=== PATIENT | male | born 1975 | race African-American/Black ===

== ENCOUNTER 2018-04-17 09:28 | Emergency (ER) | payer MEDICAID ==
[~2018-04-17] VITALS: Ht 175.3 cm; Wt 75.0 kg
[2018-04-17] MEDS ORDERED: ALBU4TAB6 PO (09:35)
[2018-04-17] MEDS ORDERED: ONDANSETRON 4MG ODT PO ONE (10:15)
[2018-04-17] MEDS ORDERED: HYDROCODONE/ACETAMINOPHEN 5/325MG TABLET PO ONE (10:15)
[2018-04-17 10:19] VITALS: BP 114/80
== END 2018-04-17 11:10 | disposition home or self-care (01) ==
LOC: ER 09:57
DX: S90.32XA Contusion of left foot, initial encounter (principal); J45.909 Unspecified asthma, uncomplicated; W22.8XXA Striking against or struck by other objects, initial encounter; Y93.89 Activity, other specified; Y92.89 Other specified places as the place of occurrence of the external cause
CPT/HCPCS: 73630; 99284; Q0162; Z7610

== ENCOUNTER 2020-01-25 21:07 | Emergency (ER) | payer MEDICAID ==
[~2020-01-25] VITALS: Ht 165.1 cm; Wt 71.0 kg
[~2020-01-25 21:07] MED LIST: ALBU4TAB6 PO
[2020-01-25] MEDS ORDERED: SODIUM CHLORIDE 0.9% 1,000 ML IV ONE (22:18)
[2020-01-25] MEDS ORDERED: ONDANSETRON HCL 4MG/2ML INJ IV STA (22:18)
[2020-01-25] MEDS ORDERED: MORPHINE SULFATE 4 MG/ML CPJ (NOT FOR IM USE) IV STA (22:18)
[2020-01-25] MEDS ORDERED: CEFAZOLIN 1000MG PREMIX 50 ML IV ONE (22:30)
[2020-01-25] MEDS ORDERED: TETANUS, DIPHTHERIA, PERTUSSIS VAC/PF 0.5ML (>7YR OLD) IM ONE (22:30)
[2020-01-25 23:39] LABS: HEMATOCRIT. 40.7 % (42.0-52.0); HEMOGLOBIN. 14.6 g/dL (14.0-18.0); MEAN CORPUSCULAR HEMOGLOBIN 35.9 pg (28.0-32.0); MEAN CORPUSCULAR VOLUME 100.3 fL (80.0-94.0); MEAN PLATELET VOLUME 8.3 fl (7.4-10.4); PLATELET 121 x1000/uL (130-400); RED BLOOD CELL COUNT 4.06 mill/uL (4.7-6.1); RED CELL DISTRIBUTION WIDTH 14.5 % (11.6-14.6)
[2020-01-25 23:46] LABS: CHLORIDE 105 mEq/L (98-107)
[2020-01-26 00:01] LABS: PARTIAL THROMBOPLASTIN TIME 25.5 sec (23.4-31.0); PROTHROMBIN TIME 10.3 sec (9.6-11.0)
[2020-01-26] MEDS ORDERED: MORPHINE SULFATE 4 MG/ML CPJ (NOT FOR IM USE) IV ONE ×2 (02:15→14:15)
[2020-01-26 02:49] LABS: CLARITY URINE CLEAR (CLEAR); COLOR URINE YELLOW (YELLOW); KETONES URINE 2+ (NEGATIVE); LEUKOCYTE ESTERASE URINE NEGATIVE (NEGATIVE); NITRITE URINE NEGATIVE (NEGATIVE); OCCULT BLOOD URINE NEGATIVE (NEGATIVE); PROTEIN URINE NEGATIVE (NEGATIVE); SPECIFIC GRAVITY URINE 1.023 (1.005-1.030); UROBILINOGEN URINE 0.2 E.U./dL (0.2-1.0)
[2020-01-26] MEDS ORDERED: SODIUM CHLORIDE 0.9% 1,000 ML IV ONE (03:15)
[2020-01-26 05:14] LABS: PLATELET ESTIMATE SLIGHTLY DECREASED
[2020-01-26] MEDS ORDERED: HYDROMORPHONE HCL/PF 2MG/ML CPJ IV ONE ×2 (05:45→09:00)
[2020-01-26 06:18] LABS: HEMATOCRIT 33.7 % (42.0-52.0); HEMOGLOBIN 11.7 g/dL (14.0-18.0); MEAN CORPUSCULAR HEMOGLOBIN 34.9 pg (28.0-32.0); MEAN CORPUSCULAR VOLUME 101.1 fL (80.0-94.0); PLATELET 105 x1000/uL (130-400); RED BLOOD CELL COUNT 3.34 mill/uL (4.7-6.1); RED CELL DISTRIBUTION WIDTH 14.1 % (11.6-14.6)
[2020-01-26] MEDS ORDERED: ONDANSETRON HCL 4MG/2ML INJ IV ONE (09:00)
[2020-01-26] MEDS ORDERED: DEXT 5%/LACTATED RINGERS 1,000 ML IV ONE (14:30)
[2020-01-26] MEDS ORDERED: HYDROCODONE/ACETAMINOPHEN 5/325MG TABLET PO ONE (19:30)
[2020-01-26 19:37] VITALS: BP 124/74
== END 2020-01-26 21:19 | disposition home or self-care (01) ==
LOC: ER 21:12
DX: S02.69XA Fracture of mandible of other specified site, initial encounter for closed fracture (principal); W22.8XXA Striking against or struck by other objects, initial encounter; Y93.89 Activity, other specified; Y92.89 Other specified places as the place of occurrence of the external cause; Y99.8 Other external cause status
CPT/HCPCS: 36415; 70450; 70486; 72125; 80053; 81003; 82962; 83690; 85025; 85027; 85610; 85730; 86850; 86900; 86901; 90715; 96365; 96375; 96376; 99285; J0690; J1170; J2270; J2405; J7030; J7121

== ENCOUNTER 2020-04-19 01:56 | Emergency (ER) | payer MEDICAID ==
[~2020-04-19] VITALS: Ht 175.3 cm; Wt 63.0 kg
[2020-04-19] MEDS ORDERED: HYDROCODONE/ACETAMINOPHEN 5/325MG TABLET PO ONE (03:30)
[2020-04-19] MEDS ORDERED: AMOXICILLIN/POTASSIUM CLAVULANATE 875/125MG TAB PO ONE (03:30)
[2020-04-19 04:12] VITALS: BP 125/79
== END 2020-04-19 04:14 | disposition home or self-care (01) ==
LOC: ER 01:56
DX: S02.609G Fracture of mandible, unspecified, subsequent encounter for fracture with delayed healing (principal); J45.909 Unspecified asthma, uncomplicated; X58.XXXD Exposure to other specified factors, subsequent encounter
CPT/HCPCS: 99283

== ENCOUNTER 2023-12-28 18:53 | Emergency (ER) | payer MEDICAID ==
[~2023-12-28] VITALS: Ht 175.3 cm; Wt 73.0 kg
[2023-12-28 18:56] VITALS: TEMP 98.4; O2SAT 92
[2023-12-28] MEDS: IBUPROFEN 600MG TABLET PO ONE (20:15)
[2023-12-28] MEDS ORDERED: KETO10TA2 MT (20:58)
[2023-12-28 21:27] VITALS: BP 124/86; PULSE 98; RESP 13
[2023-12-28] MEDS: OXYCODONE HCL/ACETAMINOPHEN 5/325MG TABLET PO ONE (21:27)
== END 2023-12-28 20:58 | disposition home or self-care (01) ==
LOC: ER 18:53
DX: M25.562 Pain in left knee (principal); R07.81 Pleurodynia; J45.909 Unspecified asthma, uncomplicated
CPT/HCPCS: 71045; 73562; 99284; Z7610 ×2; L1830

== ENCOUNTER 2024-12-03 07:53 | Emergency (ER) | payer MEDICAID, OTHER ==
[~2024-12-03] VITALS: Ht 170.2 cm; Wt 79.0 kg
[~2024-12-03 07:53] MED LIST changes: +KETO10TA2 MT
[2024-12-03 08:00] VITALS: O2SAT 98
[2024-12-03] MEDS: ACETAMINOPHEN 325MG TABLET PO ONE (08:41)
[2024-12-03] MEDS: HYDROCODONE/ACETAMINOPHEN 5/325MG TABLET PO ONE ×2 (11:02→15:19)
[2024-12-03] MEDS: AMOXICILLIN/POTASSIUM CLAVULANATE 875/125MG TAB PO ONE (13:16)
[2024-12-03] MEDS: OXYCODONE HCL/ACETAMINOPHEN 5/325MG TABLET PO ONE (13:16)
[2024-12-03] MEDS: KETOROLAC 30MG/ML VIAL IM ONE (15:18)
[2024-12-03] MEDS ORDERED: IBUP-2029 MT (15:32)
[2024-12-03 15:50] VITALS: BP 115/74; PULSE 77; RESP 18; TEMP 36.7; O2SAT 98
== END 2024-12-03 15:51 | disposition home or self-care (01) ==
LOC: ER 07:53
DX: S02.32XA Fracture of orbital floor, left side, initial encounter for closed fracture (principal); J45.909 Unspecified asthma, uncomplicated; Y04.0XXA Assault by unarmed brawl or fight, initial encounter; Y93.89 Activity, other specified; Y92.89 Other specified places as the place of occurrence of the external cause; Y99.8 Other external cause status
CPT/HCPCS: 99285; 70450; 71111; 73130; 70486; 72125; 96372; J1885